=== PATIENT | male | born 1985 | race African-American/Black ===

== ENCOUNTER 2017-08-08 11:32 | Emergency (ER) | payer MEDICAID ==
[~2017-08-08] VITALS: Ht 175.3 cm; Wt 87.0 kg
[2017-08-08] MEDS ORDERED: SODIUM CHLORIDE 0.9% 10ML VIAL ONE (13:27)
[2017-08-08] MEDS ORDERED: IOHEXOL-300 100 ML BOTTLE ONE (13:27)
[2017-08-08] MEDS ORDERED: ONDANSETRON HCL 4MG/2ML VIAL IV STA (16:41)
[2017-08-08] MEDS ORDERED: SODIUM CHLORIDE 0.9% 1,000 ML IV ONE (16:41)
[2017-08-08] MEDS ORDERED: KETOROLAC 30MG/ML VIAL IV STA (16:41)
[2017-08-08 16:59] LABS: BASOPHILS % 0.5 % (0.0-2.0); EOSINOPHILS % 0.7 % (0.0-5.0); HEMATOCRIT. 45.4 % (42.0-52.0); HEMOGLOBIN. 15.2 g/dL (14.0-18.0); LYMPHOCYTES % 19.2 % (20.0-50.0); MEAN CORPUSCULAR HEMOGLOBIN 28.8 pg (28.0-32.0); MEAN CORPUSCULAR VOLUME 86.1 fL (80.0-94.0); MEAN PLATELET VOLUME 8.5 fl (7.4-10.4); MONOCYTES % 12.1 % (2.0-8.0); NEUTROPHILS % 67.5 % (40.0-76.0); PLATELET 242 x1000/uL (130-400); RED BLOOD CELL COUNT 5.27 mill/uL (4.7-6.1); RED CELL DISTRIBUTION WIDTH 14.6 % (11.6-14.6)
[2017-08-08 17:03] LABS: CHLORIDE 102 mEq/L (98-107)
[2017-08-08 17:04] LABS: INR 1.2; PROTHROMBIN TIME 12.7 sec (9.4-11.6)
[2017-08-08 17:10] LABS: CARBON DIOXIDE 27 mEq/L (21-32)
[2017-08-08 17:58] LABS: CLARITY URINE CLEAR (CLEAR); COLOR URINE YELLOW (YELLOW); GLUCOSE URINE NEGATIVE (NEGATIVE); KETONES URINE NEGATIVE (NEGATIVE); LEUKOCYTE ESTERASE URINE TRACE (NEGATIVE); NITRITE URINE NEGATIVE (NEGATIVE); OCCULT BLOOD URINE NEGATIVE (NEGATIVE); PROTEIN URINE NEGATIVE (NEGATIVE); SPECIFIC GRAVITY URINE 1.015 (1.005-1.030)
[2017-08-08] MEDS ORDERED: METRONIDAZOLE 500 MG PREMIX 100 ML IV ONE (18:45)
[2017-08-08] MEDS ORDERED: ACETAMINOPHEN WITH CODEINE 300/30MG TABLET PO ONE (18:45)
[2017-08-08] MEDS ORDERED: LEVOFLOXACIN 750MG PREMIX 150 ML IV ONE (18:45)
[2017-08-08] MEDS ORDERED: LEVOFLOXACIN 250MG TABLET PO ONE (19:45)
[2017-08-08 20:13] VITALS: BP 112/71
== END 2017-08-08 20:16 | disposition home or self-care (01) ==
LOC: ER 14:37
DX: K57.92 Diverticulitis of intestine, part unspecified, without perforation or abscess without bleeding (principal)
CPT/HCPCS: 36415; 74177; 80053; 81001; 83690; 85025; 85610; 96365; 96375; 99285; A4216; J1885; J2405; J3490; J7030; Q9967

== ENCOUNTER 2018-03-08 14:46 | Emergency (ER) | payer MEDICAID ==
[~2018-03-08] VITALS: Ht 175.3 cm; Wt 86.0 kg
[2018-03-08] MEDS ORDERED: IBUPROFEN 600MG TABLET PO ONE (15:15)
[2018-03-08] MEDS ORDERED: VALACYCLOVIR HCL 500MG TABLET PO SCH (22:00)
[2018-03-08 22:41] VITALS: BP 122/86
== END 2018-03-08 22:45 | disposition home or self-care (01) ==
LOC: ER 16:33
DX: B00.1 Herpesviral vesicular dermatitis (principal)
CPT/HCPCS: 87070; 87430; 99284